=== PATIENT | female | born 1980 | race Two or more races ===

== ENCOUNTER 2016-05-29 12:52 | Inpatient (IN) | payer MEDICAID ==
[~2016-05-29] VITALS: Ht 170.2 cm; Wt 56.4 kg
[~2016-05-29 12:52] MED LIST: Pantoprazole Sodium Sesquihydr PO
[2016-05-29] MEDS ORDERED: SODIUM CHLORIDE 0.9% 1,000 ML IVB ONE (13:26)
[2016-05-29] MEDS ORDERED: ONDANSETRON HCL 4 MG/2 ML VIAL IV ONE (13:30)
[2016-05-29 13:43] LABS: Basophils # (auto) 0 uL; Basophils % (auto) 0.1 % (0.0-2.0); DEFINITIVE VIEW TRANSMISSION; Eosinophils # (auto) 0 uL; Eosinophils % (auto) 0.2 % (0.0-7.0); Hematocrit 38.5 % (36.0-46.0); Hemoglobin 12.3 g/dL (12.2-16.2); Lymphocytes # (auto) 1.3 uL; Lymphocytes % (auto) 25.6 % (10.0-50.0); Mean Corpuscular Hemoglobin 25.7 pg (28.0-32.0); Mean Corpuscular Hgb Conc. 31.9 g/dL (32.0-36.0); Mean Corpuscular Volume 80.4 fL (80.0-100.0); Mean Platelet Volume 7.8 fL (7.4-10.4); Monocytes # (auto) 0.3 uL; Monocytes % (auto) 5.6 % (0.0-12.0); Neutrophils # (auto) 3.3 uL; Neutrophils % (auto) 68.5 % (37.0-80.0); Platelet Count (auto) 116 10^3/uL (140-450); Red Cell Distribution Width 18.4 % (11.6-16.0); White Blood Cell 4.9 10^3/uL (4.4-10.8)
[2016-05-29 14:16] LABS: Albumin 4.6 g/dL (3.4-5.0); Amylase 121 U/L (25-115); Anion Gap 19 (5-15); Aspartate Aminotransferase 370 U/L (15-37); Blood Urea Nitrogen 7 mg/dL (7-18); Calcium 9.3 mg/dL (8.5-10.1); Carbon Dioxide 22 mmol/L (21-32); Chloride 94 mmol/L (98-107); Potassium 3.1 mmol/L (3.5-5.1); Salicylate < 1.7 mg/dL (2.8-20.0); Sodium 135 mmol/L (136-145)
[2016-05-29 15:16] LABS: Alkaline Phosphatase 150 U/L (45-117); BUN/Creatinine Ratio 15.2; GFR African American 201 mL/min; GFR Non-African American 166 mL/min; Glucose 106 mg/dL (74-106); Total Protein 8.8 g/dL (6.4-8.2)
[2016-05-29 15:19] LABS: Acetaminophen < 2.0 ug/mL (10-30)
[2016-05-29] MEDS ORDERED: THIAMINE HCL 100 MG/ML 2ML VIAL IV ONE (16:15)
[2016-05-29] MEDS ORDERED: ACETAMINOPHEN 500 MG TAB PO PRN (16:15)
[2016-05-29] MEDS ORDERED: LORazepam 2MG/ML-1ML VIAL IV PRN (16:15)
[2016-05-29] MEDS ORDERED: HYDROcodone-ACET 5/325MG TAB PO PRN (16:15)
[2016-05-29] MEDS ORDERED: NITROGLYCERIN 0.4 MG SL TAB SL PRN (16:15)
[2016-05-29] MEDS ORDERED: MORPHINE SULF INJ 2 MG/ML SYRINGE 1ML IV PRN (16:15)
[2016-05-29] MEDS ORDERED: PANTOPRAZOLE SODIUM 40 MG/10 ML VIAL IV ONE (16:15)
[2016-05-29] MEDS ORDERED: cefTRIAXone 1GM/50ML D5W 50 ML IV ONE (16:30)
[2016-05-29] MEDS: SODIUM CHLORIDE 0.9% 1,000 ML IV SCH ×2 (16:49→22:48)
[2016-05-29] MEDS: PROMETHAZINE HCL 25 MG/ML 1ML IV PRN ×2 (16:49→20:53)
[2016-05-29] MEDS: chlordiazePOXIDE HCL 5 MG CAP PO SCH ×2 (18:21→23:39)
[2016-05-29] MEDS ORDERED: POTASSIUM CHL 20 Meq TABLET PO ONE (20:00)
[2016-05-29 20:36] VITALS: BP 156/88
[2016-05-29 20:40] VITALS: BP 156/88
[2016-05-29 20:45] VITALS: BP 156/88
[2016-05-29] MEDS: MORPHINE SULF INJ 2 MG/ML SYRINGE 1ML IV PRN (20:53)
[2016-05-29] MEDS: metroNIDAZOLE 500MG/100ML 100 ML IV SCH (23:40)
[2016-05-30] MEDS: MORPHINE SULF INJ 2 MG/ML SYRINGE 1ML IV PRN ×2 (03:36→08:53)
[2016-05-30] MEDS: SODIUM CHLORIDE 0.9% 1,000 ML IV SCH ×3 (03:36→18:50)
[2016-05-30] MEDS: PROMETHAZINE HCL 25 MG/ML 1ML IV PRN (03:37)
[2016-05-30 04:45] VITALS: BP 151/91
[2016-05-30] MEDS: metroNIDAZOLE 500MG/100ML 100 ML IV SCH ×3 (05:35→17:50)
[2016-05-30] MEDS: chlordiazePOXIDE HCL 5 MG CAP PO SCH ×3 (05:35→17:50)
[2016-05-30 06:12] LABS: Basophils # (auto) 0 uL; DEFINITIVE VIEW TRANSMISSION; Eosinophils # (auto) 0 uL; Eosinophils % (auto) 0.5 % (0.0-7.0); Hematocrit 32.1 % (36.0-46.0); Hemoglobin 10.5 g/dL (12.2-16.2); Lymphocytes # (auto) 0.8 uL; Lymphocytes % (auto) 24.2 % (10.0-50.0); Mean Corpuscular Hemoglobin 26.4 pg (28.0-32.0); Mean Corpuscular Hgb Conc. 32.6 g/dL (32.0-36.0); Mean Corpuscular Volume 80.9 fL (80.0-100.0); Mean Platelet Volume 8.5 fL (7.4-10.4); Monocytes # (auto) 0.2 uL; Neutrophils # (auto) 2.3 uL; Neutrophils % (auto) 69.3 % (37.0-80.0); Platelet Count (auto) 91 10^3/uL (140-450); Red Cell Distribution Width 19.5 % (11.6-16.0); White Blood Cell 3.4 10^3/uL (4.4-10.8)
[2016-05-30 06:16] LABS: INR 1.07 (0.9-1.15); Partial Thromboplastin Time 26.4 sec (22.64-33.71)
[2016-05-30 06:25] LABS: Calcium 8.8 mg/dL (8.5-10.1); Potassium 3.5 mmol/L (3.5-5.1)
[2016-05-30 06:27] LABS: Albumin 3.7 g/dL (3.4-5.0); BUN/Creatinine Ratio 7.1
[2016-05-30 06:31] LABS: Bilirubin, Total 1.4 mg/dL (0.2-1.0); Total Protein 7.7 g/dL (6.4-8.2)
[2016-05-30 06:59] LABS: Cholesterol 231 mg/dL (<200); HDL Cholesterol 168 mg/dL (40-59); LDL Cholesterol 71 mg/dL (<100); Triglycerides 55 mg/dL (<150)
[2016-05-30] MEDS: cefTRIAXone 1GM/50ML D5W 50 ML IV SCH (08:53)
[2016-05-30] MEDS: PANTOPRAZOLE SODIUM 40 MG/10 ML VIAL IV SCH (08:53)
[2016-05-30] MEDS: THIAMINE HCL 100 MG/ML 2ML VIAL IV SCH (08:53)
[2016-05-30 09:00] VITALS: BP 154/96
[2016-05-30 13:00] VITALS: BP 147/103
[2016-05-30 17:21] VITALS: BP 149/100
[2016-05-30 18:02] LABS: Urine Bilirubin Negative (Negative); Urine Blood 2+ /uL (Negative); Urine Color Red (Yellow); Urine Glucose Normal (Normal); Urine Ketone 2+ (Negative); Urine Mucus FEW (None Seen); Urine Nitrite Negative (Negative); Urine RBC 22883 /hpf (0 - 4); Urine Urobilinogen Normal (Negative)
[2016-05-30 18:24] LABS: Hematocrit 32.5 % (36.0-46.0); Hemoglobin 10.5 g/dL (12.2-16.2)
[2016-05-30 20:00] VITALS: BP 138/93
[2016-05-30 21:37] VITALS: BP 138/93
[2016-05-31] MEDS: metroNIDAZOLE 500MG/100ML 100 ML IV SCH ×3 (00:04→12:00)
[2016-05-31] MEDS: chlordiazePOXIDE HCL 5 MG CAP PO SCH ×3 (00:04→12:00)
[2016-05-31] MEDS: MORPHINE SULF INJ 2 MG/ML SYRINGE 1ML IV PRN (01:05)
[2016-05-31] MEDS: SODIUM CHLORIDE 0.9% 1,000 ML IV SCH ×3 (01:29→14:29)
[2016-05-31 04:33] VITALS: BP 138/97
[2016-05-31 05:42] LABS: Hematocrit 33.5 % (36.0-46.0); Hemoglobin 10.8 g/dL (12.2-16.2)
[2016-05-31 06:00] LABS: Amylase 96 U/L (25-115)
[2016-05-31 08:39] VITALS: BP 145/111
[2016-05-31] MEDS: cefTRIAXone 1GM/50ML D5W 50 ML IV SCH (09:00)
[2016-05-31] MEDS: PANTOPRAZOLE SODIUM 40 MG/10 ML VIAL IV SCH (10:12)
[2016-05-31] MEDS: THIAMINE HCL 100 MG/ML 2ML VIAL IV SCH (10:12)
[2016-05-31] MEDS: PROMETHAZINE HCL 25 MG/ML 1ML IV PRN (10:20)
[2016-05-31 13:00] VITALS: BP 130/90
[2016-05-31 13:37] VITALS: BP 145/11
== END 2016-05-31 14:45 | disposition home or self-care (01) | DRG 282 ==
LOC: ER 12:55 → TELE 12:56 → TELE-CENTR 20:17
PROVIDERS: ADMIT Internal Medicine; ATTEND Internal Medicine
DX: K85.20 Alcohol induced acute pancreatitis without necrosis or infection (principal); R56.9 Unspecified convulsions; K70.9 Alcoholic liver disease, unspecified; F10.20 Alcohol dependence, uncomplicated; E87.6 Hypokalemia; F17.210 Nicotine dependence, cigarettes, uncomplicated; Z71.41 Alcohol abuse counseling and surveillance of alcoholic; Z79.899 Other long term (current) drug therapy
CPT/HCPCS: 36415; 71010; 74176; 76705; 76775; 80053; 80061; 80320; 80329; 81001; 81025; 82140; 82150; 83690; 85014; 85018; 85025; 85610; 85730; 94761; 96361; 96365; 96375; C9113; G0434; J0696; J2405; J3490

== ENCOUNTER 2016-07-09 13:00 | Emergency (ER) | payer MEDICAID ==
[~2016-07-09] VITALS: Ht 170.2 cm; Wt 56.7 kg
[2016-07-09 13:50] VITALS: BP 144/50
[2016-07-09 13:51] LABS: Basophils # (auto) 0 uL; Basophils % (auto) 0.4 % (0.0-2.0); Eosinophils # (auto) 0 uL; Hematocrit 41.2 % (36.0-46.0); Hemoglobin 13.6 g/dL (12.2-16.2); Lymphocytes # (auto) 3.4 uL; Lymphocytes % (auto) 49.4 % (10.0-50.0); Mean Corpuscular Hemoglobin 27.8 pg (28.0-32.0); Mean Corpuscular Volume 84.1 fL (80.0-100.0); Mean Platelet Volume 8.9 fL (7.4-10.4); Monocytes # (auto) 0.2 uL; Monocytes % (auto) 2.7 % (0.0-12.0); Neutrophils # (auto) 3.3 uL; Neutrophils % (auto) 47.5 % (37.0-80.0); Platelet Count (auto) 286 10^3/uL (140-450); Red Cell Distribution Width 16.9 % (11.6-16.0); White Blood Cell 6.9 10^3/uL (4.4-10.8)
[2016-07-09] MEDS ORDERED: SODIUM CHLORIDE 0.9% 1,000 ML IVB ONE (14:03)
[2016-07-09 14:39] LABS: Albumin 3.6 g/dL (3.4-5.0); BUN/Creatinine Ratio 10.9; Bilirubin, Total 0.4 mg/dL (0.2-1.0); Calcium 7.9 mg/dL (8.5-10.1); Potassium 3.6 mmol/L (3.5-5.1); Total Protein 7.6 g/dL (6.4-8.2)
[2016-07-09 17:44] LABS: Urine Bilirubin Negative (Negative); Urine Blood Negative /uL (Negative); Urine Color Colorless (Yellow); Urine Glucose Normal (Normal); Urine Ketone Negative (Negative); Urine Nitrite Negative (Negative); Urine RBC <1 /hpf (0 - 4); Urine Squamous Epithelial Cell FEW /hpf (<5); Urine Urobilinogen Normal (Negative); Urine pH 5.5 (5.0-8.0)
== END 2016-07-09 17:10 | disposition home or self-care (01) ==
LOC: EDBD 13:00 → ER 13:00
DX: F10.10 Alcohol abuse, uncomplicated (principal); F17.210 Nicotine dependence, cigarettes, uncomplicated
CPT/HCPCS: 36415; 80053; 80320; 81001; 85025; 94761; 96360; 99284; G0434

== ENCOUNTER 2017-12-01 19:26 | Emergency (ER) | payer MEDICAID ==
[~2017-12-01] VITALS: Ht 170.2 cm; Wt 68.0 kg
[2017-12-01 20:21] VITALS: BP 133/85
[2017-12-01] MEDS ORDERED: PHENAZOPYRIDINE HCL 100 MG TAB PO ONE (21:00)
[2017-12-01] MEDS ORDERED: cefTRIAXone SOD 1,000 MG VL IM ONE (21:00)
== END 2017-12-01 21:36 | disposition home or self-care (01) ==
LOC: ER 19:26 → EDBD 19:26 → ER 21:36
DX: R30.0 Dysuria (principal); F17.210 Nicotine dependence, cigarettes, uncomplicated
CPT/HCPCS: 81002; 96372; 99283; J0696